=== PATIENT | female | born 1960 | race Two or more races ===

== ENCOUNTER 2021-03-02 10:53 | Inpatient (IN) | payer BC, OTHER ==
[~2021-03-02] VITALS: Ht 162.6 cm; Wt 67.6 kg
[2021-03-02 11:45] LABS: Basophils # (auto) 0 10 ^3/uL (0-0.2); Eosinophils # (auto) 0 10 ^3/uL (0-0.8); Hemoglobin 15.1 g/dL (12.2-16.2); Lymphocytes # (auto) 0.2 10 ^3/uL (0.4-5.4); Mean Corpuscular Volume 81.2 fL (80.0-100.0)
[2021-03-02] MEDS ORDERED: SODIUM CHLORIDE 0.9% 1,000 ML IV ONE ×2 (11:45)
[2021-03-02 11:47] LABS: Basophils % (auto) 0.3 % (0.0-2.0); Hematocrit 47.5 % (36.0-46.0); Lymphocytes % (auto) 1.9 % (10.0-50.0); Mean Corpuscular Hemoglobin 25.9 pg (28.0-32.0); Mean Corpuscular Hgb Conc. 31.9 g/dL (32.0-36.0); Monocytes # (auto) 0.9 10 ^3/uL (0-1.3); Monocytes % (auto) 8.2 % (0.0-12.0); Neutrophils # (auto) 10.2 10 ^3/uL (1.6-8.6); Neutrophils % (auto) 89.6 % (37.0-80.0); Red Blood Cells 5.85 10^6/uL (4.0-5.20); Red Cell Distribution Width 13.5 % (11.8-14.3); White Blood Cell 11.3 10^3/uL (4.4-10.8)
[2021-03-02 12:05] LABS: Anion Gap 22 (5-15); Calcium 10.3 mg/dL (8.5-10.1); Chloride 105 mmol/L (98-107); Potassium 3.7 mmol/L (3.5-5.1); Sodium 135 mmol/L (136-145)
[2021-03-02 12:13] LABS: Alanine Aminotransferase 14 U/L (13-56); Alkaline Phosphatase 154 U/L (45-117); Aspartate Aminotransferase < 3 U/L (15-37); BUN/Creatinine Ratio 43.5; Bilirubin, Total 0.6 mg/dL (0.2-1.0); GFR African American 35 mL/min; GFR Non-African American 29 mL/min; Total Protein 7.4 g/dL (6.4-8.2)
[2021-03-02 12:17] LABS: Blood Urea Nitrogen 81 mg/dL (7-18); Carbon Dioxide 8 mmol/L (21-32); Glucose 651 mg/dL (74-106)
[2021-03-02] MEDS ORDERED: InsuLIN R (HUMAN) 100 UNITS in SODIUM CHL 0.9% 99 ML IV SCH (12:30)
[2021-03-02] MEDS ORDERED: DEXTROSE (50%) 50ML SYRG IV PRN ×2 (12:30→16:30)
[2021-03-02] MEDS ORDERED: INSULIN LANTUS (GLARGINE) 1 /0.01ml (100units/ml) SC ONE (12:30)
[2021-03-02] MEDS: ACCU-CHEK COMFORT CURVE STRIP VI SCH ×3 (15:16→20:12)
[2021-03-02] MEDS ORDERED: SODIUM BICARBONATE 50ML VIAL 50 ML in SOD CHL 0.45% 1,000 ML IV ONE (16:15)
[2021-03-02] MEDS ORDERED: ONDANSETRON HCL 4 MG/2 ML VIAL IV PRN (16:30)
[2021-03-02] MEDS ORDERED: ACETAMINOPHEN 325 MG RECT SUPP PR PRN (16:30)
[2021-03-02] MEDS ORDERED: NITROGLYCERIN 0.4 MG SL TAB SL PRN (16:30)
[2021-03-02] MEDS ORDERED: LABETALOL HCL 5 MG/ML 4ML SYRINGE IV PRN (16:30)
[2021-03-02] MEDS ORDERED: MORPHINE SULFATE INJECTION 2 MG/ML SYRG IV PRN ×2 (16:30)
[2021-03-02] MEDS ORDERED: SODIUM CHLORIDE 0.9% 2,000 ML IV ONE (16:45)
[2021-03-02] MEDS: SODIUM CHLORIDE 0.9% 1,000 ML IV SCH (19:06)
[2021-03-02] MEDS: InsuLIN REG 1unit/0.01ml Soln (100units/ml) SC SCH (20:12)
[2021-03-02 21:24] LABS: Urine Bacteria NONE SEEN /hpf (None Seen); Urine Blood 1+ /uL (Negative); Urine Budding Yeast MANY /hpf (None Seen); Urine Specific Gravity 1.027 (1.001-1.035); Urine WBC 22 /hpf (0 - 5); Urine WBC Clumps PRESENT /hpf (None Seen)
[2021-03-03 00:21] LABS: Calcium 9.2 mg/dL (8.5-10.1)
[2021-03-03] MEDS: InsuLIN REG 1unit/0.01ml Soln (100units/ml) SC SCH ×6 (00:39→20:00)
[2021-03-03] MEDS: ACCU-CHEK COMFORT CURVE STRIP VI SCH ×6 (00:39→20:00)
[2021-03-03 00:49] LABS: Potassium 2.8 mmol/L (3.5-5.1)
[2021-03-03] MEDS ORDERED: POTASSIUM CHL 20MEQ/100ML 100 ML IV ONE ×2 (01:00→03:34)
[2021-03-03] MEDS: SODIUM CHLORIDE 0.9% 1,000 ML IV SCH ×2 (02:49→12:45)
[2021-03-03 04:24] LABS: Eosinophils # (auto) 0 10 ^3/uL (0-0.8); Eosinophils % (auto) 0.1 % (0.0-7.0); Hemoglobin 13.7 g/dL (12.2-16.2); Lymphocytes # (auto) 0.7 10 ^3/uL (0.4-5.4); Monocytes # (auto) 1.1 10 ^3/uL (0-1.3); Monocytes % (auto) 10.9 % (0.0-12.0)
[2021-03-03 04:27] LABS: Basophils # (auto) 0.1 10 ^3/uL (0-0.2); Basophils % (auto) 0.5 % (0.0-2.0); Hematocrit 39.8 % (36.0-46.0); Lymphocytes % (auto) 6.6 % (10.0-50.0); Mean Corpuscular Hemoglobin 26.4 pg (28.0-32.0); Mean Corpuscular Hgb Conc. 34.5 g/dL (32.0-36.0); Mean Corpuscular Volume 76.5 fL (80.0-100.0); Neutrophils # (auto) 8.4 10 ^3/uL (1.6-8.6); Neutrophils % (auto) 81.9 % (37.0-80.0); Red Cell Distribution Width 13.5 % (11.8-14.3); White Blood Cell 10.3 10^3/uL (4.4-10.8)
[2021-03-03 04:34] LABS: INR 1.05 (0.9-1.15)
[2021-03-03 04:36] LABS: Albumin 2.5 g/dL (3.4-5.0)
[2021-03-03 04:40] LABS: BUN/Creatinine Ratio 58.8
[2021-03-03 04:42] LABS: Bilirubin, Total 0.4 mg/dL (0.2-1.0); Total Protein 6.1 g/dL (6.4-8.2)
[2021-03-03 05:15] LABS: Potassium 2.9 mmol/L (3.5-5.1)
[2021-03-03] MEDS ORDERED: POTASSIUM EFFERVESENT TAB 25 MEQ PO ONE (08:45)
[2021-03-03] MEDS ORDERED: POTASSIUM CHLORIDE 20 MEQ/100 ML IV SCH ×2 (08:45)
[2021-03-03] MEDS ORDERED: DEXTROSE 5% IV SCH ×2 (08:45)
[2021-03-03 08:55] LABS: BUN/Creatinine Ratio 58.8; Calcium 9.3 mg/dL (8.5-10.1); Potassium 3.3 mmol/L (3.5-5.1)
[2021-03-03] MEDS ORDERED: INSULIN LANTUS (GLARGINE) 1 /0.01ml (100units/ml) SC SCH (10:00)
[2021-03-03] MEDS: PANTOPRAZOLE 40 MG/10 ML VIAL INJ IV SCH (10:22)
[2021-03-03] MEDS: ENOXAPARIN SOD 40 MG/0.4 ML SYRINGE SC SCH (10:24)
[2021-03-03] MEDS: POTASSIUM CHLORIDE 40 MEQ in D5W 5% 1,000 ML IV SCH ×2 (10:59→23:36)
[2021-03-03] MEDS ORDERED: SODIUM CHLORIDE 0.9% 1,000 ML IV SCH (14:45)
[2021-03-03 16:47] VITALS: BP 120/72
[2021-03-03 16:49] VITALS: BP 120/72
[2021-03-03 22:00] VITALS: BP 155/87
[2021-03-03] MEDS: INSULIN LANTUS (GLARGINE) 1 /0.01ml (100units/ml) SC SCH (22:00)
[2021-03-04] MEDS: ACCU-CHEK COMFORT CURVE STRIP VI SCH ×6 (04:00→23:38)
[2021-03-04] MEDS: InsuLIN REG 1unit/0.01ml Soln (100units/ml) SC SCH ×6 (04:00→23:54)
[2021-03-04 05:00] VITALS: BP 154/92
[2021-03-04 05:40] LABS: Basophils # (auto) 0 10 ^3/uL (0-0.2); Basophils % (auto) 0.4 % (0.0-2.0); Eosinophils # (auto) 0 10 ^3/uL (0-0.8); Eosinophils % (auto) 0.5 % (0.0-7.0); Hemoglobin 12.5 g/dL (12.2-16.2); Lymphocytes # (auto) 0.8 10 ^3/uL (0.4-5.4); Monocytes # (auto) 0.7 10 ^3/uL (0-1.3); Neutrophils # (auto) 4.3 10 ^3/uL (1.6-8.6)
[2021-03-04 05:43] LABS: Hematocrit 36.8 % (36.0-46.0); Lymphocytes % (auto) 13.6 % (10.0-50.0); Mean Corpuscular Hemoglobin 26.1 pg (28.0-32.0); Mean Corpuscular Hgb Conc. 34.1 g/dL (32.0-36.0); Mean Corpuscular Volume 76.6 fL (80.0-100.0); Monocytes % (auto) 12.1 % (0.0-12.0); Neutrophils % (auto) 73.4 % (37.0-80.0); White Blood Cell 5.9 10^3/uL (4.4-10.8)
[2021-03-04 06:08] LABS: Albumin 2.1 g/dL (3.4-5.0); Bilirubin, Total 0.4 mg/dL (0.2-1.0); Magnesium 2.1 mg/dL (1.6-2.6); Total Protein 5.5 g/dL (6.4-8.2)
[2021-03-04] MEDS: PANTOPRAZOLE 40 MG/10 ML VIAL INJ IV SCH (08:17)
[2021-03-04] MEDS: POTASSIUM CHLORIDE 40 MEQ in D5W 5% 1,000 ML IV SCH ×2 (08:17→23:45)
[2021-03-04] MEDS: ENOXAPARIN SOD 40 MG/0.4 ML SYRINGE SC SCH (08:17)
[2021-03-04 09:00] VITALS: BP 142/95
[2021-03-04 13:00] VITALS: BP 129/76
[2021-03-04] MEDS ORDERED: POTASSIUM EFFERVESENT TAB 25 MEQ PO ONE (13:30)
[2021-03-04 16:48] VITALS: BP 140/89
[2021-03-04 17:20] LABS: BUN/Creatinine Ratio 56.9; Calcium 9.4 mg/dL (8.5-10.1); Potassium 3.5 mmol/L (3.5-5.1)
[2021-03-04 21:58] VITALS: BP 133/80
[2021-03-04] MEDS: INSULIN LANTUS (GLARGINE) 1 /0.01ml (100units/ml) SC SCH (22:49)
[2021-03-05] MEDS ORDERED: KCL 40 MEQ IV ONE (00:17)
[2021-03-05] MEDS ORDERED: D5 IV ONE (00:17)
[2021-03-05] MEDS ORDERED: SOD CHL IV ONE (00:17)
[2021-03-05] MEDS: POTASSIUM CHLORIDE 40 MEQ in D5W 5% 1,000 ML IV SCH ×2 (00:18→02:18)
[2021-03-05 05:00] VITALS: BP 134/80
[2021-03-05] MEDS: ACCU-CHEK COMFORT CURVE STRIP VI SCH ×3 (06:00→18:55)
[2021-03-05] MEDS: InsuLIN REG 1unit/0.01ml Soln (100units/ml) SC SCH ×3 (06:00→18:56)
[2021-03-05 08:15] LABS: Basophils # (auto) 0 10 ^3/uL (0-0.2); Eosinophils # (auto) 0.1 10 ^3/uL (0-0.8); Lymphocytes # (auto) 0.9 10 ^3/uL (0.4-5.4); Mean Corpuscular Volume 76.8 fL (80.0-100.0); Monocytes # (auto) 0.6 10 ^3/uL (0-1.3); Neutrophils # (auto) 3.5 10 ^3/uL (1.6-8.6)
[2021-03-05 08:17] LABS: Basophils % (auto) 0.5 % (0.0-2.0); Eosinophils % (auto) 1.3 % (0.0-7.0); Hematocrit 34.9 % (36.0-46.0); Hemoglobin 11.6 g/dL (12.2-16.2); Lymphocytes % (auto) 18.2 % (10.0-50.0); Mean Corpuscular Hemoglobin 25.6 pg (28.0-32.0); Mean Corpuscular Hgb Conc. 33.4 g/dL (32.0-36.0); Monocytes % (auto) 11.1 % (0.0-12.0); Neutrophils % (auto) 68.9 % (37.0-80.0); Red Blood Cells 4.54 10^6/uL (4.0-5.20); Red Cell Distribution Width 13.6 % (11.8-14.3); White Blood Cell 5.2 10^3/uL (4.4-10.8)
[2021-03-05 08:42] LABS: Albumin 1.9 g/dL (3.4-5.0); Calcium 8.9 mg/dL (8.5-10.1); Potassium 3.3 mmol/L (3.5-5.1)
[2021-03-05 08:45] LABS: Bilirubin, Total 0.4 mg/dL (0.2-1.0); Total Protein 5.2 g/dL (6.4-8.2)
[2021-03-05 09:00] VITALS: BP 114/63
[2021-03-05] MEDS ORDERED: POTASSIUM CHL 10 Meq TABLET PO ONE (09:15)
[2021-03-05] MEDS: PANTOPRAZOLE 40 MG/10 ML VIAL INJ IV SCH (10:25)
[2021-03-05] MEDS: ENOXAPARIN SOD 40 MG/0.4 ML SYRINGE SC SCH (10:25)
[2021-03-05] MEDS: POTASSIUM CHL 20MEQ/100ML 100 ML IV SCH ×2 (10:25→15:31)
[2021-03-05 13:00] VITALS: BP 130/79
[2021-03-05] MEDS: Glucerna Carbsteady SHAKE Vanilla 8oz PO SCH ×2 (15:08→18:54)
[2021-03-05 17:00] VITALS: BP 140/77
[2021-03-05 22:00] VITALS: BP 123/71
[2021-03-05] MEDS: INSULIN LANTUS (GLARGINE) 1 /0.01ml (100units/ml) SC SCH (23:10)
[2021-03-06] MEDS: InsuLIN REG 1unit/0.01ml Soln (100units/ml) SC SCH ×2 (00:49→06:21)
[2021-03-06 05:00] VITALS: BP 126/69
[2021-03-06] MEDS: ACCU-CHEK COMFORT CURVE STRIP VI SCH ×2 (06:16)
[2021-03-06 06:26] LABS: Basophils # (auto) 0 10 ^3/uL (0-0.2); Eosinophils # (auto) 0.1 10 ^3/uL (0-0.8); Hemoglobin 11.2 g/dL (12.2-16.2); Neutrophils # (auto) 3.6 10 ^3/uL (1.6-8.6)
[2021-03-06 06:28] LABS: Basophils % (auto) 0.5 % (0.0-2.0); Hematocrit 33.2 % (36.0-46.0); Lymphocytes % (auto) 19.1 % (10.0-50.0); Mean Corpuscular Hemoglobin 25.8 pg (28.0-32.0); Mean Corpuscular Hgb Conc. 33.7 g/dL (32.0-36.0); Mean Corpuscular Volume 76.6 fL (80.0-100.0); Monocytes # (auto) 0.7 10 ^3/uL (0-1.3); Monocytes % (auto) 12.8 % (0.0-12.0); Neutrophils % (auto) 65.6 % (37.0-80.0); Red Blood Cells 4.33 10^6/uL (4.0-5.20); Red Cell Distribution Width 13.7 % (11.8-14.3); White Blood Cell 5.4 10^3/uL (4.4-10.8)
[2021-03-06 07:02] LABS: BUN/Creatinine Ratio 23.3; Calcium 8.7 mg/dL (8.5-10.1); Potassium 3.5 mmol/L (3.5-5.1)
[2021-03-06 09:00] VITALS: BP 125/71
[2021-03-06] MEDS: PANTOPRAZOLE 40 MG/10 ML VIAL INJ IV SCH (09:44)
[2021-03-06] MEDS: ENOXAPARIN SOD 40 MG/0.4 ML SYRINGE SC SCH (09:44)
[2021-03-06] MEDS: Glucerna Carbsteady SHAKE Vanilla 8oz PO SCH (09:44)
[2021-03-06 13:07] VITALS: BP 114/63
[2021-03-07 09:15] LABS: Folate (Folic Acid) 6.09 ng/mL (5.38-24)
== END 2021-03-06 14:00 | disposition home or self-care (01) | DRG 637 ==
LOC: ER 10:53 → EDBD 10:53 → TELE 16:23 → TELE-CENTR 03-03 14:02 → UNDODISIN 03-06 14:00
PROVIDERS: ADMIT Family Medicine; ATTEND Internal Medicine
DX: E11.00 Type 2 diabetes mellitus with hyperosmolarity without nonketotic hyperglycemic-hyperosmolar coma (NKHHC) (principal); G93.41 Metabolic encephalopathy; N17.0 Acute kidney failure with tubular necrosis; E44.0 Moderate protein-calorie malnutrition; E87.0 Hyperosmolality and hypernatremia; E87.1 Hypo-osmolality and hyponatremia; N39.0 Urinary tract infection, site not specified; Z96.649 Presence of unspecified artificial hip joint; E11.42 Type 2 diabetes mellitus with diabetic polyneuropathy; E11.22 Type 2 diabetes mellitus with diabetic chronic kidney disease; E87.6 Hypokalemia; F03.90 Unspecified dementia, unspecified severity, without behavioral disturbance, psychotic disturbance, mood disturbance, and anxiety; F17.200 Nicotine dependence, unspecified, uncomplicated; N18.9 Chronic kidney disease, unspecified; Z82.0 Family history of epilepsy and other diseases of the nervous system; Z85.07 Personal history of malignant neoplasm of pancreas; Z91.14 Patient's other noncompliance with medication regimen; Z79.899 Other long term (current) drug therapy
CPT/HCPCS: 36415; 36600; 70450; 71045; 80048; 80053; 80061; 81001; 82010; 82306; 82607; 82746; 82805; 82962; 83036; 83735; 84443; 84484; 85025; 85610; 87040; 87426; 93005; 95819; 96361; 97110; 97116; 97163; C9113; G0378; J1815; J3480